=== PATIENT | female | born 1935 | race Caucasian/White ===

== ENCOUNTER 2020-10-30 21:27 | Observation (INO) ==
[2020-10-30] MEDS ORDERED: Aspirin 325 MG TABLET PO ONE (22:00)
[2020-10-30] MEDS ORDERED: Nitroglycerin 0.4 MG TAB.SUBL SL PRN (22:00)
[2020-10-30 22:03] LABS: Basophils # 0.1 K/mcL (0.0-0.2); Basophils % 1.1 %; Eosinophils # 0.2 K/mcL (0.0-0.6); Eosinophils % 3.6 %; Hematocrit 36.3 % (35.3-44.9); Hemoglobin 12.1 g/dL (11.5-15.4); Immature Granulocytes % 0.2 % (0-4); Lymphocytes % 36.3 %; Mean Corpuscular HGB Conc 33.3 g/dL (31.6-35.5); Mean Corpuscular Hemoglobin 30.9 pg (28.0-33.3); Mean Corpuscular Volume 92.6 fL (83.0-100.0); Mean Platelet Volume 11.2 fL (9.4-12.4); Monocytes # 0.5 K/mcL (0.0-1.3); Monocytes % 9.5 %; Neutrophils # 2.7 K/mcL (1.6-8.9); Platelet Count 158 K/mcL (140-400); Red Blood Count 3.92 M/mcL (3.82-4.97); Segmented Neutrophils % 49.3 %; White Blood Count 5.6 K/mcL (4.3-11.1)
[2020-10-30] MEDS ORDERED: Isovue-370 500 ML BOTTLE IVP ONE (22:24)
[2020-10-30 22:25] LABS: Alanine Aminotransferase 17 Units/L (7-52); Albumin 4.1 g/dL (3.5-5.7); Albumin/Globulin Ratio 1.6 (1.1-2.2); Alkaline Phosphatase 58 Units/L (34-104); Aspartate Amino Transferase 19 Units/L (13-39); BUN/Creatinine Ratio 15 (6-26); Bilirubin,Total 0.3 mg/dL (0.3-1.0); Blood Urea Nitrogen 17 mg/dL (8-23); Carbon Dioxide 20 mEq/L (23-29); Chloride 106 mEq/L (98-107); Globulin 2.6 g/dL (2.4-3.5); Glucose 148 mg/dL (70-105); Osmolality,Calculated 290 (280-300); Potassium 3.9 mEq/L (3.5-5.1); Sodium 138 mEq/L (136-145); Total Protein 6.7 g/dL (6.4-8.9); Troponin I < 0.03 ng/mL (< 0.04); eGFR For African Americans 57 (> 60); eGFR For Non-African Americans 47 (> 60)
[2020-10-30] MEDS ORDERED: methylPREDNISolone 125 MG/2 ML VIAL IVP ONE (22:29)
[2020-10-31] MEDS ORDERED: Naloxone 0.4 MG/ML INJ IVP PRN (01:32)
[2020-10-31] MEDS ORDERED: Morphine Sulfate 2 MG/ML SYRINGE IVP PRN (01:36)
[2020-10-31] MEDS ORDERED: Nitroglycerin 0.4 MG TAB.SUBL SL PRN (01:36)
[2020-10-31] MEDS ORDERED: Benzonatate 100 MG CAPSULE PO PRN (03:28)
[2020-10-31] MEDS ORDERED: Regadenoson 0.4 MG/5 ML SYRINGE IVP ONE (07:13)
[2020-10-31] MEDS ORDERED: Perflutren Lipid Microsphere 1.3 ML in 0.9 % Sodium Chloride 8.7 ML IVP PRN (07:50)
[2020-10-31] MEDS: Aspirin 81 MG TAB.CHEW PO SCH (08:19)
[2020-10-31] MEDS ORDERED: 0.9 % Sodium Chloride 500 ML IVC SCH (11:30)
[2020-10-31] MEDS: *HR* Heparin 5,000 UNIT/ML VIAL SQ SCH (17:10)
[2020-11-01] MEDS: *HR* Heparin 5,000 UNIT/ML VIAL SQ SCH (05:08)
[2020-11-01 06:39] LABS: Hematocrit 36.6 % (35.3-44.9); Hemoglobin 12.3 g/dL (11.5-15.4); Mean Corpuscular HGB Conc 33.6 g/dL (31.6-35.5); Mean Corpuscular Hemoglobin 31.6 pg (28.0-33.3); Mean Corpuscular Volume 94.1 fL (83.0-100.0); Mean Platelet Volume 11.5 fL (9.4-12.4); Platelet Count 161 K/mcL (140-400); Red Blood Count 3.89 M/mcL (3.82-4.97); Red Cell Distribution Width 12.5 % (11.5-14.5)
[2020-11-01 06:40] LABS: White Blood Count 9.4 K/mcL (4.3-11.1)
[2020-11-01 06:57] VITALS: BP 129/65
[2020-11-01 07:01] LABS: BUN/Creatinine Ratio 29 (6-26); Blood Urea Nitrogen 26 mg/dL (8-23); Calcium 9.1 mg/dL (8.6-10.3); Carbon Dioxide 23 mEq/L (23-29); Chloride 108 mEq/L (98-107); Glucose 137 mg/dL (70-105); Osmolality,Calculated 295 (280-300); Potassium 4.1 mEq/L (3.5-5.1); Sodium 139 mEq/L (136-145); eGFR For African Americans > 60 (> 60); eGFR For Non-African Americans 60 (> 60)
[2020-11-01] MEDS ORDERED: polyethylene glycoL 3350 17 GM POWD.PACK PO SCH (09:00)
[2020-11-01] MEDS: Aspirin 81 MG TAB.CHEW PO SCH (09:37)
== END 2020-11-01 11:34 | disposition home or self-care (01) ==
LOC: 3BNU 21:27 → EMEROOARM 21:27 → SUATTDRO 10-31 01:35 → 3BNU 10-31 02:13
PROVIDERS: ADMIT Student in an Organized Health Care Education/Training Program; ATTEND Nurse Practitioner